=== PATIENT | male | born 1975 | race Caucasian/White ===

== ENCOUNTER 2024-05-22 22:12 | Emergency (ER) | payer BC ==
[~2024-05-22] VITALS: Ht 170.2 cm; Wt 93.0 kg
[2024-05-22 22:41] VITALS: BP 160/105; PULSE 118; RESP 16; TEMP 97.9; O2SAT 98
[2024-05-23] LABS: BASOPHILS % (AUTO) 0.2 % (0.0-2.0); EOSINOPHILS # (AUTO) 0.1 K/uL (0-0.4); EOSINOPHILS % (AUTO) 0.7 % (0.0-4.0); HEMATOCRIT 41.2 % (36-52); HEMOGLOBIN 13.7 g/dL (12.0-18.0); LYMPHOCYTES # (AUTO) 3.2 K/uL (2.0-11.5); LYMPHOCYTES % (AUTO) 19.9 % (20.5-51.1); MEAN CORPUSCULAR HEMOGLOBIN 29 pg (27-31); MEAN CORPUSCULAR HGB CONC 33 g/dL (33-37); MEAN CORPUSCULAR VOLUME 86.5 fL (80-94); MONOCYTES # (AUTO) 1.4 K/uL (0.8-1.0); MONOCYTES % (AUTO) 8.6 % (1.7-9.3); NEUTROPHILS # (AUTO) 11.2 K/uL (1.8-7.7); NEUTROPHILS % (AUTO) 70.6 % (42.2-75.2); PLATELET COUNT (AUTO) 355 K/uL (140-450); RED BLOOD CELL COUNT(AUTO) 4.76 MIL/uL (4.20-6.10); RED CELL DISTRIBUTION WIDTH 13.1 % (11.6-13.7); WHITE BLOOD COUNT (AUTO) 15.8 K/uL (4.8-10.8)
[2024-05-23] MEDS: KETOROLAC 30 MG/ML VIAL IVP ONE (00:01)
[2024-05-23] MEDS: NACL 0.9% 1,000 ML IV ONE (00:02)
[2024-05-23 00:16] LABS: ALBUMIN 3.5 g/dL (3.4-5.0); ANION GAP 12.8 (8-16); CARBON DIOXIDE 29.6 mmol/L (21-32); POTASSIUM 3.4 mmol/L (3.5-5.1); TOTAL PROTEIN, SERUM 8.2 g/dL (6.4-8.2)
[2024-05-23 00:17] LABS: APPEARANCE,URINE CLEAR (CLEAR); BILIRUBIN,URINE NEGATIVE (NEGATIVE); BLOOD, URINE 3+ (NEGATIVE); COLOR,URINE YELLOW (YELLOW); LEUKOCYTE ESTERASE ,URINE NEGATIVE (NEGATIVE); NITRITE, URINE NEGATIVE (NEGATIVE); PROTEIN,URINE TRACE (NEGATIVE); UGLUCOSE NEGATIVE (NEGATIVE); UROBILINOGEN,URINE 0.2 EU/dL (0.2 - 1)
[2024-05-23 00:24] LABS: BACTERIA,URINE 10-30 (MOD) /HPF (None Seen); MUCUS,URINE 1+ /LPF (None Seen); SQUAMOUS EPITHELIAL CELL,UR 0-3 (FEW) /LPF (0-3 (FEW)); WBC,URINE 0-5 /HPF (0-5)
[2024-05-23] MEDS ORDERED: ACET500T99 PO (02:09)
[2024-05-23] MEDS ORDERED: CIPR500T4 PO (02:09)
[2024-05-23 02:19] VITALS: BP 130/88; PULSE 110; RESP 18; TEMP 98.3; O2SAT 98
== END 2024-05-23 02:19 | disposition home or self-care (01) ==
LOC: MED 22:12
DX: R10.33 Periumbilical pain (principal); R19.7 Diarrhea, unspecified; R63.0 Anorexia; I10 Essential (primary) hypertension; Z79.899 Other long term (current) drug therapy
CPT/HCPCS: 36415; 80053; 81001; 83690; 85025; 96361; 96374; 99283; J1885; J7030